=== PATIENT | female | born 1985 | race Caucasian/White ===

== ENCOUNTER 2017-08-21 14:51 | Emergency (ER) | payer BC ==
[2017-08-21 15:26] VITALS: BP 133/77
--- NOTE | 2017-08-21 15:49 | ED ---
Skin Complaint - HPI Summary HPI Summary: 32 year old female presents with a lesion on her face for the past 2 days. She states that swelling seems to keep increasing. She denies any dental pain. No fevers. He states three days ago she noticed that there was some swelling in her axillary region. She has had swelling in the left axillary region has decreased. She states she's been placed ice on the area which has helped decrease the swelling. No sinus congestion. No headache. Does not have a history of MRSA. No medical conditions. - History of Current Complaint Hx Last Menstrual Period: 08/21/17 Pain Intensity: 3 <Matilda Jamison - Last Filed: 08/21/17 16:00> <Sangeetha Ambrosio - Last Filed: 08/21/17 16:59> - History of Current Complaint Chief Complaint: UCSkin Time Seen by Provider: 08/21/17 15:38 Stated Complaint: LIP COMPLAINT - Allergy/Home Medications Allergies/Adverse Reactions: Allergies Allergy/AdvReac Type Severity Reaction Status Date / Time metoclopramide [From Reglan] Allergy Shakes Verified 08/21/17 15:19 PMH/Surg Hx/FS Hx/Imm Hx Endocrine/Hematology History: Denies: Hx Diabetes, Hx Thyroid Disease Cardiovascular History: Denies: Hx Hypertension Respiratory History: Denies: Hx Asthma, Hx Chronic Obstructive Pulmonary Disease (COPD) GI History: Denies: Hx Ulcer Neurological History: Reports: Hx Migraine - this is different from her usual migraine - Surgical History Surgery Procedure, Year, and Place: 2006 TONSILECTOMY Infectious Disease History: No Infectious Disease History: Reports: History Other Infectious Disease - lyme Denies: Hx Clostridium Difficile, Hx Hepatitis, Hx Human Immunodeficiency Virus (HIV), Hx of Known/Suspected MRSA, Hx Shingles, Hx Tuberculosis, Traveled Outside the [place] in Last 30 Days - Family History Known Family History: Positive: None - Social History Alcohol Use: Rare Substance Use Type: Reports: None Smoking Status (MU): Never Smoked Tobacco <Matilda Jamison - Last Filed: 08/21/17 16:00> Review of Systems Negative: Fever Negative: Chest Pain Negative: Shortness Of Breath Positive: Rash, Other - facial edema All Other Systems Reviewed And Are Negative: Yes <Matilda Jamison - Last Filed: 08/21/17 16:00> Physical Exam Triage Information Reviewed: Yes Vital Signs On Initial Exam: Initial Vitals Temp Pulse Resp BP Pulse Ox 98.1 F 85 18 133/77 100 08/21/17 15:20 08/21/17 15:20 08/21/17 15:20 08/21/17 15:20 08/21/17 15:20 Vital Signs Reviewed: Yes Appearance: Positive: Well-Appearing Skin: Positive: Warm, Dry, Other - edema noted to left face above upper lip with some erythema (1cm) no area of fluactance or loculation felt, 1cm are of edema felt inguinal lymph node Eyes: Positive: Normal, EOMI, HAYES, Conjunctiva Clear ENT: Positive: Normal ENT inspection, Pharynx normal, TMs normal Dental: Negative: Percussion Tenderness @, Dental Fracture @ Respiratory/Lung Sounds: Positive: Clear to Auscultation, Breath Sounds Present Cardiovascular: Positive: Normal, RRR Musculoskeletal: Positive: Normal Neurological: Positive: Normal Psychiatric: Positive: Normal <Matilda Jamison - Last Filed: 08/21/17 16:00> Vital Signs On Initial Exam: Initial Vitals Temp Pulse Resp BP Pulse Ox 98.1 F 85 18 133/77 100 08/21/17 15:20 08/21/17 15:20 08/21/17 15:20 08/21/17 15:20 08/21/17 15:20 <Sangeetha Ambrosio - Last Filed: 08/21/17 16:59> Diagnostics - Vital Signs Vital Signs Temp Pulse Resp BP Pulse Ox 08/21/17 15:20 98.1 F 85 18 133/77 100 <Matilda Jamison - Last Filed: 08/21/17 16:00> - Vital Signs Vital Signs Temp Pulse Resp BP Pulse Ox 08/21/17 15:20 98.1 F 85 18 133/77 100 <Sangeetha Ambrosio - Last Filed: 08/21/17 16:59> Course/Dx - Course Course Of Treatment: 32 year old female presents with a lesion on her face for the past 2 days. She states that swelling seems to keep increasing. She denies any dental pain. No fevers. He states three days ago she noticed that there was some swelling in her axillary region. She has had swelling in the left axillary region has decreased. She states she's been placed ice on the area which has helped decrease the swelling. No sinus congestion. No headache. Does not have a history of MRSA. No medical conditions. on exam has edema and 1cm erythema above left upper lip. no abscess felt but looks like could potenitally abscess. no dental tenderness. will treat as early abscess with bactrim. told to place heat and if feels like can drain something to return. patient requesting dose of diflucain. will have follow up with primary for wound check and to follow up as bp as in pre-htn range currently. patient understand and agrees with plan. - Differential Diagnoses - Skin Complaint Differential Diagnoses: Abscess, Cellulitis, Contact Dermatitis <Matilda Jamison - Last Filed: 08/21/17 16:00> <Sangeetha Ambrosio - Last Filed: 08/21/17 16:59> - Diagnoses Provider Diagnoses: Facial swelling Discharge - Sign-Out/Discharge Documenting (check all that apply): Discharge/Admit/Transfer - Billing Disposition and Condition Condition: GOOD Disposition: Home <Matilda Jamison - Last Filed: 08/21/17 16:00> - Billing Disposition and Condition Condition: GOOD Disposition: Home <Sangeetha Ambrosio - Last Filed: 08/21/17 16:59> - Discharge Plan Condition: Good Disposition: HOME Prescriptions: Fluconazole [Diflucan 150 MG (NF)] 150 mg PO ONCE #1 tab Sulfamethox/Trimethoprim DS* [Bactrim DS 800/160 TAB*] 1 tab PO BID #20 tab Patient Education Materials: Abscess (ED) Referrals: Elena Castillo MD [Primary Care Provider] - Additional Instructions: alternate ice and heat Take antibiotic twice a day for 10 days Take ibuprofen or Tylenol for pain every 6 hours follow up with primary within 5 days Return to if develop fever, area feels like can be drained, or any new or worsening symptoms Attestation Statement User Type: Provider - I was available for consult. This patient was seen by the [facility]. The patient was not presented to, seen by, or examined by me. -Adriana <Sangeetha Ambrosio - Last Filed: 08/21/17 16:59>
== END 2017-08-21 16:00 | disposition home or self-care (01) ==
LOC: UCEAST 14:51
DX: R22.9 Localized swelling, mass and lump, unspecified (principal); L98.8 Other specified disorders of the skin and subcutaneous tissue
CPT/HCPCS: 99212; G0463

== ENCOUNTER 2017-11-29 14:30 | Emergency (ER) | payer BC ==
[2017-11-29 16:13] VITALS: BP 124/86
--- NOTE | 2017-11-29 16:37 | UC ---
Throat Pain/Nasal Srinivas HPI - HPI Summary HPI Summary: 6 day hx of sore throat/laryngitis. nothing makes it better/worse. + sick contacts at work, she is ? strep. some cough. did not get flu shot. - History of Current Complaint Chief Complaint: UCGeneralIllness Stated Complaint: THROAT COMPLAINT Time Seen by Provider: 11/29/17 16:17 Hx Obtained From: Patient Hx Last Menstrual Period: 11/04/17 ?: No - bcp Severity: Mild Pain Intensity: 7 Cough: None Associated Signs & Symptoms: Positive: Negative Related History: Seasonal Allergies - Allergies/Home Medications Allergies/Adverse Reactions: Allergies Allergy/AdvReac Type Severity Reaction Status Date / Time metoclopramide [From [employer]] Allergy Shakes Verified 11/29/17 16:13 PMH/Surg Hx/FS Hx/Imm Hx Previously Healthy: Yes - Surgical History Surgical History: Yes Surgery Procedure, Year, and Place: 2006 TONSILECTOMY - Family History Known Family History: Positive: Other - noncontributary - Social History Alcohol Use: Weekly Substance Use Type: None Smoking Status (MU): Never Smoked Tobacco Review of Systems Constitutional: Negative Skin: Negative ENT: Sore Throat, Sinus Congestion Respiratory: Negative Cardiovascular: Negative Musculoskeletal: Negative All Other Systems Reviewed And Are Negative: Yes Physical Exam Triage Information Reviewed: Yes Appearance: Well-Appearing, Well-Nourished Vital Signs: Initial Vital Signs Temp 98.2 F 11/29/17 16:09 Pulse 86 11/29/17 16:09 Resp 20 11/29/17 16:09 BP 124/86 11/29/17 16:09 Pulse Ox 100 11/29/17 16:09 Vital Signs Reviewed: Yes ENT Exam: Normal ENT: Positive: Pharynx normal, TMs normal. Negative: Tonsillar exudate Dental: Negative: Cervical Lymphadenopathy Neck exam: Normal Neck: Positive: Supple Respiratory Exam: Normal Respiratory: Positive: Lungs clear Cardiovascular Exam: Normal Neurological: Positive: Alert Psychological Exam: Normal Skin: Negative: rashes Throat Pain/Nasal Course/Dx - Course Course Of Treatment: 6 day hx of sore throat and loss of voice w/ no fever. rapid strep neg. viral pharyngitis, self limiting. recommended fluids, nsaids and return if worsening. - Differential Dx/Diagnosis Differential Diagnosis/HQI/PQRI: Laryngitis, Tonsillitis, URI Provider Diagnoses: pharyngitis/laryngitis Discharge - Sign-Out/Discharge Documenting (check all that apply): Patient Departure All imaging exams completed and their final reports reviewed: No Studies - Discharge Plan Condition: Good Disposition: HOME Patient Education Materials: Pharyngitis (ED) Referrals: Elena Castillo MD [Primary Care Provider] - Additional Instructions: return to urgent care if symptoms worsen - Billing Disposition and Condition Condition: GOOD Disposition: Home - Attestation Statements Provider Attestation: I was available for consult. This patient was seen by the [facility]. The patient was discussed with me. She was seen by or examined by me. -Adriana
== END 2017-11-29 16:38 | disposition home or self-care (01) ==
LOC: UCEAST 14:30
DX: J02.9 Acute pharyngitis, unspecified (principal); J04.0 Acute laryngitis; Z88.8 Allergy status to other drugs, medicaments and biological substances
CPT/HCPCS: 87651; 99211; G0463

== ENCOUNTER 2018-04-10 12:23 | Emergency (ER) | payer BC ==
[2018-04-10] MEDS ORDERED: Albuterol/Ipratropium NEB.SOL* Albuterol 2.5 MG/Ipratropium 0.5 MG 3 ML INH ONE (13:52)
[2018-04-10 14:33] LABS: Influenza A Molecular NEGATIVE (Negative); Influenza B Molecular NEGATIVE (Negative)
--- NOTE | 2018-04-10 14:45 | UC ---
FLU HPI - HPI Summary HPI Summary: Pt c/o of influenza like symptoms and ST X 10 days. 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 - History of Current Complaint Chief Complaint: UCGeneralIllness Stated Complaint: SORE THROAT EAR PAIN Time Seen by Provider: 04/10/18 13:47 Hx Obtained From: Patient Hx Last Menstrual Period: 03/22/18 ?: No Onset/Duration: Gradual Onset, Lasting Days, Still Present Severity Currently: Moderate Severity Initially: Moderate Pain Intensity: 7 Associated Signs & Symptoms: Positive: Myalgia, Sore Throat Related Hx: Possible Flu/Infectious Exposure - Risk Factors Influenza Risk Factors: Negative - Allergy/Home Medications Allergies/Adverse Reactions: Allergies Allergy/AdvReac Type Severity Reaction Status Date / Time metoclopramide [From Reglan] Allergy Shakes Verified 04/10/18 13:25 Home Medications: Home Medications Levonorgestrel-Ethin Estradiol [Lessina-28 Tablet] 1 tab PO DAILY 04/10/18 [ History Confirmed 04/10/18] PMH/Surg Hx/FS Hx/Imm Hx Previously Healthy: Yes - Surgical History Surgical History: Yes Surgery Procedure, Year, and Place: 2007 TONSILECTOMY - Family History Known Family History: Positive: Cardiac Disease, Other - noncontributary - Social History Occupation: Employed Full-time Lives: With Family Alcohol Use: Weekly Substance Use Type: None Smoking Status (MU): Never Smoked Tobacco Have You Smoked in the Last Year: No Review of Systems All Other Systems Reviewed And Are Negative: Yes Constitutional: Positive: Fever, Chills, Fatigue Skin: Positive: Negative Eyes: Positive: Negative ENT: Positive: Sore Throat, Sinus Congestion Respiratory: Positive: Negative Cardiovascular: Positive: Negative Gastrointestinal: Positive: Negative Genitourinary: Positive: Negative Motor: Positive: Negative Neurovascular: Positive: Negative Musculoskeletal: Positive: Myalgia Neurological: Positive: Negative Psychological: Positive: Negative Is Patient Immunocompromised?: No Physical Exam Triage Information Reviewed: Yes Appearance: Ill-Appearing Vital Signs: Initial Vital Signs Temp 98.9 F 04/10/18 13:21 Pulse 83 04/10/18 13:21 Resp 20 04/10/18 13:21 BP 109/70 04/10/18 13:21 Pulse Ox 100 04/10/18 13:21 Vital Signs Reviewed: Yes Eye Exam: Normal ENT: Positive: Nasal congestion Dental Exam: Normal Neck exam: Normal Respiratory Exam: Normal Cardiovascular Exam: Normal Musculoskeletal Exam: Normal Neurological Exam: Normal Psychological Exam: Normal Skin Exam: Normal Flu Course/Dx - Differential Dx/Diagnosis Differential Diagnosis/HQI/PQRI: Bronchitis, Influenza, Upper Respiratory Infection Provider Diagnosis: Viral syndrome Discharge - Sign-Out/Discharge Documenting (check all that apply): Patient Departure All imaging exams completed and their final reports reviewed: No Studies - Discharge Plan Condition: Stable Disposition: HOME Patient Education Materials: Viral Syndrome (ED) Referrals: Elena Castillo MD [Primary Care Provider] - If Needed - Billing Disposition and Condition Condition: STABLE Disposition: Home
[2018-04-10 14:46] VITALS: BP 121/73
== END 2018-04-10 15:02 | disposition home or self-care (01) ==
LOC: UCEAST 12:23
DX: B34.9 Viral infection, unspecified (principal); M79.10 Myalgia, unspecified site; H92.09 Otalgia, unspecified ear; Z88.8 Allergy status to other drugs, medicaments and biological substances
CPT/HCPCS: 87651; 99211; G0463

== ENCOUNTER 2018-06-17 21:15 | Emergency (ER) | payer BC ==
[2018-06-17 21:39] VITALS: BP 115/75
--- NOTE | 2018-06-17 22:00 | UC ---
Eye Complaint HPI - HPI Summary HPI Summary: 33 y/o female presents to the urgent care c/o left eye redness, mild swelling and irritation since yesterday. Pt reports this morning she woke up she has yellowish crusting. 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 Pt denies fever, eye pain, HAINES, photophobia, fever, SOB chest pain,abdominal pain, N/v/d. - History of Current Complaint Chief Complaint: UCEye Stated Complaint: EYE COMPLAINT Time Seen by Provider: 06/17/18 21:42 Hx Obtained From: Patient Hx Last Menstrual Period: <1 WEEK ?: No Onset/Duration: Gradual Onset, Lasting Days - 2 days, Still Present, Worse Since - this morniing Timing: Constant Severity Initially: Mild Severity Currently: Mild Pain Intensity: 5 Pain Scale Used: 0-10 Numeric Location of Injury: Conjunctiva - left eye Character: Foreign Body Sensation Aggravating Factor(s): Blinking Alleviating Factor(s): Nothing Associated Signs And Symptoms: Positive: Drainage (Purulent) - yellowish. Negative: Photophobia, Vision Impairment Bilateral, Fever, Swelling - Risk Factors Penetrating Injury Risk Factor: Negative Globe Rupture Risk Factors: Negative Acute Glaucoma Risk Factors: Negative Optic Artery Occlusion Risk Factors: Negative - Allergies/Home Medications Allergies/Adverse Reactions: Allergies Allergy/AdvReac Type Severity Reaction Status Date / Time metoclopramide [From Reglan] Allergy Shakes Verified 06/17/18 21:39 PMH/Surg Hx/FS Hx/Imm Hx Previously Healthy: Yes - Pt denies PMHX - Surgical History Surgical History: Yes Surgery Procedure, Year, and Place: 2006 TONSILLECTOMY - Family History Known Family History: Positive: Cardiac Disease, Other - noncontributary - Social History Occupation: Employed Full-time Lives: With Family Alcohol Use: Occasionally Substance Use Type: None Smoking Status (MU): Never Smoked Tobacco Have You Smoked in the Last Year: No Review of Systems All Other Systems Reviewed And Are Negative: Yes Constitutional: Positive: Negative Skin: Positive: Negative Eyes: Positive: Drainage - yellowish, Eye Redness - left eye. Negative: Photophobia ENT: Positive: Negative Respiratory: Positive: Negative Cardiovascular: Positive: Negative Gastrointestinal: Positive: Negative Genitourinary: Positive: Negative Motor: Positive: Negative Neurovascular: Positive: Negative Musculoskeletal: Positive: Negative Neurological: Positive: Negative Psychological: Positive: Negative Is Patient Immunocompromised?: No Physical Exam - Summary Physical Exam Summary: Vital Signs Reviewed: Yes General: Well appearing, well nourished female in no apparent pain distress Eyes: Positive: left Conjunctiva Inflamed - Visual acuity: WNL,Visual bain: full to confrontation.PERRLA, EOMI intact w/out limitation or complaint of pain. eyelashes clear. mild tearing and yellowish drainage observed. No ciliary flush. No chemosis, No photophobia. Normal fundoscopic exam; no proptosis, exophthalmos, nystagmus. ENT: Positive: Normal ENT inspection, Hearing grossly normal, Pharynx normal, Nasal congestion, Nasal drainage - clear, TMs normal - B/L external ear canal clear , TM's WNL. Negative: Tonsillar swelling, Tonsillar exudate Neck: Positive: Supple, Nontender, No Lymphadenopathy Respiratory: Positive: Chest nontender, Lungs clear, Normal breath sounds, No respiratory distress Cardiovascular: Positive: RRR, No Murmur, Pulses Normal, Brisk Capillary Refill Abdomen Description: Positive: Nontender, No Organomegaly, Soft. Negative: CVA Tenderness (R), CVA Tenderness (L) Bowel Sounds: Positive: Present Musculoskeletal: Positive: Strength Intact, ROM Intact, No Edema Neurological Exam: Normal Psychological Exam: Normal Skin Exam: Normal Triage Information Reviewed: Yes Vital Signs: Initial Vital Signs Temp 98.4 F 06/17/18 21:35 Pulse 106 06/17/18 21:35 Resp 16 06/17/18 21:35 BP 115/75 06/17/18 21:35 Pulse Ox 99 06/17/18 21:35 Eye Complaint Course/Dx - Course Course Of Treatment: 33 y/o female presents to the urgent care c/o left eye redness, mild swelling and irritation since yesterday. Pt reports this morning she woke up she has yellowish crusting. 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 Pt denies fever, eye pain, HAINES, photophobia, fever, SOB chest pain,abdominal pain, N/v/d. Hx obtained. Pt w/ Left eye acute bacterial conjunctivitis. Pt Rx Ciprofloxacin ophthalmic drops. Drops dispense at the clinic since pharmacy is closed. Pt advised to encourage hand washing and if symptoms do not improve or worsen to f/u with her PCP or Converter Supervisor Dr Cliff Rivera in 2-3 days. Pt understood and agreed. - Differential Dx/Diagnosis Differential Diagnosis/HQI/PQRI: Conjunctivitis, Periorbital Cellulitis, Orbital Cellulitis, Uveitis Provider Diagnosis: Acute bacterial conjunctivitis of left eye Discharge - Sign-Out/Discharge Documenting (check all that apply): Patient Departure - D/c home All imaging exams completed and their final reports reviewed: No Studies - Discharge Plan Condition: Stable Disposition: HOME Patient Education Materials: Conjunctivitis (ED) Forms: *Work Release Referrals: Elena Castillo MD [Primary Care Provider] - 3 Days Cliff Rivera MD [Medical Doctor] - If Needed Additional Instructions: 1-Please apply ciprofloxacin ophthalmic drops as instructed and finish the full course of treatment to avoid recurrent infection. 2-If you do not improve or if symptoms worsen please f/u with your PCP or geospatial information scientist Dr Rivera for further evaluation and treatment - Billing Disposition and Condition Condition: STABLE Disposition: Home
[2018-06-17] MEDS ORDERED: Ciprofloxacin 0.3% OPTH.SOL* 2.5 ML BTL LEFT EYE ONE (22:17)
== END 2018-06-17 22:33 | disposition home or self-care (01) ==
LOC: UCEAST 21:15
DX: H10.32 Unspecified acute conjunctivitis, left eye (principal); Z88.8 Allergy status to other drugs, medicaments and biological substances
CPT/HCPCS: 99212; A9270-GY; G0463

== ENCOUNTER 2018-07-07 16:23 | Emergency (ER) | payer BC ==
[2018-07-07 16:48] VITALS: BP 123/75
--- NOTE | 2018-07-07 17:01 | UC ---
[facility] HPI - HPI Summary HPI Summary: Jaw pain left side since yesterday afternoon after chewing on something hars, felt sharp pain in the left TMJ. has had difficulty chewing and opening wide, has use ibuprofen with only some relief. - History of Current Complaint Chief Complaint: UCDentalProblem Stated Complaint: DENTAL Time Seen by Provider: 07/07/18 16:29 Hx Obtained From: Patient Hx Last Menstrual Period: 06/08/18 ?: No Onset/Duration: Sudden Onset, Lasting Days - 1 Severity: Moderate Pain Intensity: 6 Related History: TMJ Dysfunction - Allergies/Home Medications Allergies/Adverse Reactions: Allergies Allergy/AdvReac Type Severity Reaction Status Date / Time metoclopramide [From Reglan] Allergy Shakes Verified 07/07/18 16:48 PMH/Surg Hx/FS Hx/Imm Hx Previously Healthy: Yes - Surgical History Surgical History: Yes Surgery Procedure, Year, and Place: 2006 TONSILLECTOMY - Family History Known Family History: Positive: Cardiac Disease, Other - noncontributary - Social History Alcohol Use: Rare Substance Use Type: None Smoking Status (MU): Never Smoked Tobacco Have You Smoked in the Last Year: No Review of Systems All Other Systems Reviewed And Are Negative: Yes ENT: Positive: Ear Ache Musculoskeletal: Positive: Arthralgia, Decreased ROM Physical Exam Triage Information Reviewed: Yes Appearance: Well-Appearing, Well-Nourished, Pain Distress Vital Signs: Initial Vital Signs Temp 98.9 F 07/07/18 16:43 Pulse 80 07/07/18 16:43 Resp 12 07/07/18 16:43 BP 123/75 07/07/18 16:43 Pulse Ox 98 07/07/18 16:43 Vital Signs Reviewed: Yes Eye Exam: Normal ENT: Positive: Other - bilateral cerumen impaction Dental Exam: Normal Respiratory Exam: Normal Cardiovascular Exam: Normal Abdominal Exam: Normal Musculoskeletal: Positive: ROM Limited @ - in opening and closing of the jaw, manidble is slightly deviated to the right, no swelling noted. no clicking of jaw noted Neurological Exam: Normal Psychological Exam: Normal Skin Exam: Normal Dental Complaint Course/Dx - Course Course Of Treatment: hx obtained, exam performed ,meds reviewed, bilateral ears irrigated, educated on conservative care of the TMJ. muscle relaxor's and NSAIDs for pain. RICE - Differential Dx/Diagnosis Provider Diagnosis: TMJ arthralgia Discharge - Sign-Out/Discharge Documenting (check all that apply): Patient Departure All imaging exams completed and their final reports reviewed: No Studies - Discharge Plan Condition: Stable Disposition: HOME Prescriptions: Cyclobenzaprine TAB* [Flexeril 10 MG TAB*] 10 mg PO BEDTIME #10 tab Patient Education Materials: Temporomandibular Disorder (ED) Referrals: Elena Castillo MD [Primary Care Provider] - Additional Instructions: 1. continue with iburprofen for pain 2. Flexeril at night 3. Rest, Heat, and rest the jaw. if not improving over the next week follow up with Dr castillo. - Billing Disposition and Condition Condition: STABLE Disposition: Home - Attestation Statements Provider Attestation: I was available for consult. This patient was seen by the [facility]. The patient was not presented to , seen by or examined by in -Jordan Calles MD
[2018-07-07] MEDS ORDERED: Cyclobenzaprine TAB* 10 MG PO ONE (17:14)
== END 2018-07-07 17:35 | disposition home or self-care (01) ==
LOC: UCEAST 16:23
DX: M26.622 Arthralgia of left temporomandibular joint (principal); H61.23 Impacted cerumen, bilateral; Z88.8 Allergy status to other drugs, medicaments and biological substances
CPT/HCPCS: 99213; A9270-GY; G0463

== ENCOUNTER 2018-07-26 19:47 | Emergency (ER) | payer BC ==
--- NOTE | 2018-07-26 20:05 | UC ---
General HPI - HPI Summary HPI Summary: 33 yo female c/o L ear pain, awakening her approx 03:00am this morning. Concerned that she may have an ear infection. Had cerumen flushed a couple weeks ago, and L ear didn't feel right afterwards. Since pain episode last night, she is concerned about possible infection. Re dental, does grind her teeth, and is in the process of getting this addressed. No hx of pain like this in the past. No recent fever / chills. No gi issues. Did develop pain a couple weeks ago (prompting cerumen flush), s/p biting down hard on caramel. No neck pain, there is some jaw discomfort. Wears earplugs at night, every night. - History of Current Complaint Stated Complaint: EAR PAIN Time Seen by Provider: 07/26/18 20:04 Hx Obtained From: Patient Hx Last Menstrual Period: 06/08/18 - Allergy/Home Medications Allergies/Adverse Reactions: Allergies Allergy/AdvReac Type Severity Reaction Status Date / Time metoclopramide [From Reglan] Allergy Shakes Verified 07/26/18 20:28 Home Medications: Home Medications Fexofenadine/Pseudoephedrine [Debi-D 24 Hour Tablet] 1 each PO DAILY [History Confirmed 07/26/18] PMH/Surg Hx/FS Hx/Imm Hx Previously Healthy: Yes - see hpi - Surgical History Surgical History: Yes Surgery Procedure, Year, and Place: 2006 TONSILLECTOMY - Family History Known Family History: Positive: Cardiac Disease, Other - noncontributary - Social History Alcohol Use: Rare Substance Use Type: None Smoking Status (MU): Never Smoked Tobacco Have You Smoked in the Last Year: No Review of Systems All Other Systems Reviewed And Are Negative: Yes Constitutional: Positive: Negative Skin: Positive: Negative Eyes: Positive: Negative ENT: Positive: Other - see hpi Respiratory: Positive: Negative Cardiovascular: Positive: Negative Gastrointestinal: Positive: Negative Genitourinary: Positive: Negative Motor: Positive: Other - see hpi Neurovascular: Positive: Other Musculoskeletal: Positive: Other: - see hpi Neurological: Positive: Negative Psychological: Positive: Negative Is Patient Immunocompromised?: No Physical Exam Triage Information Reviewed: Yes Appearance: Well-Nourished - sitting up, conversing easily and appropriately, full sentances Vital Signs Reviewed: Yes Eye Exam: Normal - grossly normal, nad ENT Exam: Other - L TM + mild redness, c/w barotrauma. EAC bilat nad. TM's both hummel, rtx'd, dull. No reported or visible mouth sores. Dentition grossly ok. Tender TMJ - bilat, but particularly tender L TMJ. No trismus but hurts with full opening of jaw with pressure. No rash / ext cellulitis Dental Exam: Other - see above Neck: Positive: Supple, Nontender Respiratory Exam: Normal - RR normal, no tachypnea, no dyspnea Cardiovascular Exam: Normal - HR normal, nondiaphoretic Abdominal Exam: Normal - benign Musculoskeletal Exam: Normal - gait steady, moves x 4 ok Neurological Exam: Normal - grossly nonfocal Psychological Exam: Normal - sitting up, conversing easily and appropriately, full sentances Course/Dx - Course Course Of Treatment: Reviewed coa / tx plan. Questions as posed answered to the best of my ability. Reviewed controlle subst talk. istop Reference #: [id number] F/u Dentist and PCP. - Diagnoses Provider Diagnosis: TMJ arthropathy, Serous otitis media, Barotrauma Discharge - Sign-Out/Discharge Documenting (check all that apply): Patient Departure All imaging exams completed and their final reports reviewed: No Studies - Discharge Plan Condition: Stable Disposition: HOME Prescriptions: Diazepam TAB(*) [Valium TAB(*)] 5 mg PO BEDTIME PRN #4 tab MDD 1 PRN Reason: Spasms Naproxen [Naproxen 500 mg tab] 500 mg PO BID PRN #30 tablet.dr PRN Reason: Pain Patient Education Materials: Barotitis Media (ED), Temporomandibular Disorder ( ED), Serous Otitis Media (ED) Referrals: Elena Castillo MD [Primary Care Provider] - Additional Instructions: Please schedule an appointment with your DENTIST. Follow up with your primary care physician, in the next couple weeks if possible. Lots of pillows. Seek medical attention for worse or new problems. If you take the diazepam (valium) at night, do not take trazodone that night. Do not drink any alcohol or drive or operate heavy machinery or make serious decisions while taking valium. Naproxen at least twice daily for 3 days, than twice daily as needed for pain / inflammation therafter. - Billing Disposition and Condition Condition: STABLE Disposition: Home
[2018-07-26 20:25] VITALS: BP 120/81
== END 2018-07-26 20:37 | disposition home or self-care (01) ==
LOC: UCEAST 19:47
DX: M26.69 Other specified disorders of temporomandibular joint (principal); H65.92 Unspecified nonsuppurative otitis media, left ear; T70.0XXA Otitic barotrauma, initial encounter; X58.XXXA Exposure to other specified factors, initial encounter; Z88.8 Allergy status to other drugs, medicaments and biological substances
CPT/HCPCS: 99212; G0463

== ENCOUNTER 2018-08-07 10:55 | Emergency (ER) | payer BC ==
--- NOTE | 2018-08-07 12:12 | UC ---
Pediatric ENT HPI - HPI Summary HPI Summary: Pt c/o sudden onset of ST, X 2 days. Pt has known exposure to strep. Pt had tonsillectomy. Denies fever, chills or difficulty swallowing. - History Of Current Complaint Chief Complaint: UCRespiratory Stated Complaint: SORE THROAT Time Seen by Provider: 08/07/18 12:08 Hx Obtained From: Patient Onset/Duration: Sudden Onset, Lasting Days, Still Present Timing: Constant Severity Initially: Moderate Severity Currently: Moderate Pain Intensity: 6 Character: Sharp, Dull Aggravating Factor(s): Feeding Alleviating Factor(s): Antipyretics Associated Signs And Symptoms: Sore Throat - Risk Factor(s) Epiglottis Risk Factors: Sudden Onset - Allergies/Home Medications Allergies/Adverse Reactions: Allergies Allergy/AdvReac Type Severity Reaction Status Date / Time metoclopramide [From Reglan] Allergy Shakes Verified 08/07/18 11:45 Home Medications: Home Medications Ibuprofen [Advil] 400 mg PO ONCE PRN 08/07/18 [History Confirmed 08/07/18] Past Medical History Previously Healthy: Yes History: Normal ENT History: Yes: Pharyngitis Respiratory History: No: Hx Asthma Chronic Illness History: No: Diabetes - Surgical History Surgical History: Yes: Tonsillectomy - Family History Family History of Asthma: No Family History Of Seizure: No - Social History Maternal Substance Use: No Hx Smoking Exposure: No - Immunization History Immunizations Up to Date: Yes Review Of Systems All Other Systems Reviewed And Are Negative: Yes Constitutional: Positive: Chills Eyes: Positive: Negative ENT: Positive: Throat Pain Cardiovascular: Positive: Negative Respiratory: Positive: Negative Gastrointestinal: Positive: Negative Genitourinary: Positive: Negative Musculoskeletal: Positive: Negative Skin: Positive: Negative Neurological: Positive: Negative Psychological: Positive: Negative Physical Exam Triage Information Reviewed: Yes Vital Signs: Initial Vital Signs Temp 98.3 F 08/07/18 11:41 Pulse 100 08/07/18 11:41 Resp 18 08/07/18 11:41 BP 132/72 08/07/18 11:41 Pulse Ox 99 08/07/18 11:41 Vital Signs Reviewed: Yes Appearance: Ill-Appearing Eyes: Positive: Normal ENT: Positive: Pharyngeal erythema Respiratory: Positive: Normal breath sounds Cardiovascular: Positive: Normal Musculoskeletal: Positive: Normal Neurological: Positive: Normal Psychological: Positive: Normal Pediatric EENT Course/Dx - Course Course Of Treatment: Pt is an adult. Pediatric template noted. - Differential Dx/Diagnosis Differential Diagnosis/HQI/PQRI: Pharyngitis, Tonsillitis Provider Diagnosis: Strep throat Discharge - Sign-Out/Discharge Documenting (check all that apply): Patient Departure All imaging exams completed and their final reports reviewed: No Studies - Discharge Plan Condition: Stable Disposition: HOME Prescriptions: Fluconazole 150 MG TAB* [Diflucan 150 MG TAB*] 150 mg PO UC ONCE #2 tablet Penicillin VK 500 MG TAB(NF) [Penicillin VK 500 mg Tab] 500 mg PO Q8H #30 tab Patient Education Materials: Strep Throat (DC) Referrals: Elena Castillo MD [Primary Care Provider] - If Needed - Billing Disposition and Condition Condition: STABLE Disposition: Home
[2018-08-07 12:19] VITALS: BP 132/72
== END 2018-08-07 12:21 | disposition home or self-care (01) ==
LOC: UCEAST 10:55
DX: J02.9 Acute pharyngitis, unspecified (principal); Z20.828 Contact with and (suspected) exposure to other viral communicable diseases
CPT/HCPCS: 87651; 99212; G0463

== ENCOUNTER 2018-08-25 17:59 | Emergency (ER) | payer BC ==
[2018-08-25 19:25] VITALS: BP 112/77
--- NOTE | 2018-08-25 19:33 | UC ---
Throat Pain/Nasal Srinivas HPI - HPI Summary HPI Summary: sore throat had strep 2 weeks ago and finished a course of antibiotics - History of Current Complaint Chief Complaint: UCGeneralIllness Stated Complaint: SORE THROAT Time Seen by Provider: 08/25/18 19:17 Hx Obtained From: Patient Hx Last Menstrual Period: 2 weeks ago ?: No Onset/Duration: Sudden Onset, Lasting Weeks Pain Intensity: 6 Pain Scale Used: 0-10 Numeric Cough: Nonproductive Associated Signs & Symptoms: Positive: Negative - Allergies/Home Medications Allergies/Adverse Reactions: Allergies Allergy/AdvReac Type Severity Reaction Status Date / Time metoclopramide [From Reglan] Allergy Shakes Verified 08/25/18 19:25 PMH/Surg Hx/FS Hx/Imm Hx Previously Healthy: Yes - Surgical History Surgical History: Yes Surgery Procedure, Year, and Place: 2006 TONSILLECTOMY - Family History Known Family History: Positive: Cardiac Disease, Other - noncontributary - Social History Occupation: Employed Full-time Lives: With Family Alcohol Use: Rare Substance Use Type: None Smoking Status (MU): Never Smoked Tobacco Have You Smoked in the Last Year: No Review of Systems All Other Systems Reviewed And Are Negative: Yes Constitutional: Positive: Negative Skin: Positive: Negative Eyes: Positive: Negative ENT: Positive: Sore Throat Respiratory: Positive: Negative Cardiovascular: Positive: Negative Gastrointestinal: Positive: Negative Genitourinary: Positive: Negative Motor: Positive: Negative Neurovascular: Positive: Negative Musculoskeletal: Positive: Negative Neurological: Positive: Negative Psychological: Positive: Negative Is Patient Immunocompromised?: No Physical Exam Triage Information Reviewed: Yes Appearance: Well-Appearing, No Pain Distress, Well-Nourished Vital Signs: Initial Vital Signs Temp 99 F 08/25/18 19:20 Pulse 83 08/25/18 19:20 Resp 16 08/25/18 19:20 BP 112/77 08/25/18 19:20 Pulse Ox 100 08/25/18 19:20 Vital Signs Reviewed: Yes Eye Exam: Normal Eyes: Positive: Conjunctiva Clear ENT Exam: Normal ENT: Positive: Normal ENT inspection, Hearing grossly normal, Pharynx normal, TMs normal, Uvula midline. Negative: Nasal congestion, Trismus, Muffled voice, Hoarse voice, Dental tenderness, Sinus tenderness Dental Exam: Normal Neck exam: Normal Neck: Positive: Supple, Nontender, No Lymphadenopathy Respiratory Exam: Normal Respiratory: Positive: Chest non-tender, Lungs clear, Normal breath sounds, No respiratory distress, No accessory muscle use Cardiovascular Exam: Normal Cardiovascular: Positive: RRR, No Murmur, Pulses Normal, Brisk Capillary Refill Musculoskeletal Exam: Normal Musculoskeletal: Positive: Strength Intact, ROM Intact, No Edema Neurological Exam: Normal Neurological: Positive: Alert, Muscle Tone Normal Psychological Exam: Normal Skin Exam: Normal Throat Pain/Nasal Course/Dx - Course Course Of Treatment: tylenol, ibuprofen, increase fluids follow with pcp prn - Differential Dx/Diagnosis Provider Diagnosis: Viral syndrome, Sore throat (viral) Discharge - Sign-Out/Discharge Documenting (check all that apply): Patient Departure All imaging exams completed and their final reports reviewed: No Studies - Discharge Plan Condition: Stable Disposition: HOME Patient Education Materials: Pharyngitis (ED), Viral Syndrome (ED) Referrals: Elena Castillo MD [Primary Care Provider] - If Needed - Billing Disposition and Condition Condition: STABLE Disposition: Home
== END 2018-08-25 19:52 | disposition home or self-care (01) ==
LOC: UCEAST 17:59
DX: B34.9 Viral infection, unspecified (principal); J02.8 Acute pharyngitis due to other specified organisms; Z88.8 Allergy status to other drugs, medicaments and biological substances
CPT/HCPCS: 87070; 87651; 99211; G0463

== ENCOUNTER 2018-11-06 19:11 | Emergency (ER) | payer BC ==
[2018-11-06 19:58] VITALS: BP 133/91
[2018-11-06] MEDS ORDERED: Cephalexin CAP* 500 MG PO ONE (20:18)
--- NOTE | 2018-11-06 20:18 | UC ---
Complaint Female HPI - HPI Summary HPI Summary: 33 yo female with dysuria/urgency and frequncy x 1-2 days no vag d/c no f/c has suprapubic pain no back pain - History Of Current Complaint Chief Complaint: UCGU Stated Complaint: UTI Time Seen by Provider: 11/06/18 19:46 Hx Obtained From: Patient Hx Last Menstrual Period: 1 week ago Onset/Duration: Sudden Onset, Lasting Days Timing: Intermittent, Lasting Seconds Severity Initially: Moderate Pain Intensity: 0 Pain Scale Used: 0-10 Numeric Character: Burning Aggravating Factor(s): Urination Associated Signs And Symptoms: Negative: Fever, Back Pain, Vaginal Bleeding/ Discharge, Vaginal Discharge, Nausea, Vomiting(# Of Episodes =), Genital Swelling, Genital Blisters, Retained Foregin Body (Specify) - Allergies/Home Medications Allergies/Adverse Reactions: Allergies Allergy/AdvReac Type Severity Reaction Status Date / Time metoclopramide [From Reglan] Allergy Shakes Verified 10/24/18 11:17 PMH/Surg Hx/FS Hx/Imm Hx Previously Healthy: Yes - Surgical History Surgical History: Yes Surgery Procedure, Year, and Place: 2007 TONSILLECTOMY - Family History Known Family History: Positive: Cardiac Disease, Hypertension, Other - noncontributary - Social History Alcohol Use: Rare Substance Use Type: None Smoking Status (MU): Never Smoked Tobacco Have You Smoked in the Last Year: No Review of Systems All Other Systems Reviewed And Are Negative: Yes Constitutional: Positive: Negative Skin: Positive: Negative Eyes: Positive: Negative ENT: Positive: Negative Respiratory: Positive: Negative Cardiovascular: Positive: Negative Gastrointestinal: Positive: Abdominal Pain - suprapubic Genitourinary: Positive: Dysuria, Frequency, Urgency Motor: Positive: Negative Neurovascular: Positive: Negative Musculoskeletal: Positive: Negative Neurological: Positive: Negative Psychological: Positive: Negative Physical Exam Triage Information Reviewed: Yes Appearance: Well-Appearing, No Pain Distress, Well-Nourished Vital Signs: Initial Vital Signs Temp 98.3 F 11/06/18 19:56 Pulse 100 11/06/18 19:56 Resp 18 11/06/18 19:56 BP 133/91 11/06/18 19:56 Pulse Ox 100 11/06/18 19:56 Vital Signs Reviewed: Yes Eyes: Positive: Conjunctiva Clear ENT: Positive: Hearing grossly normal. Negative: Nasal congestion, Nasal drainage, Trismus, Muffled voice, Hoarse voice Neck: Positive: Supple Respiratory: Positive: Lungs clear, Normal breath sounds, No respiratory distress Cardiovascular: Positive: RRR, No Murmur Abdomen Description: Positive: No Organomegaly, Soft. Negative: Nontender - tender supropubically only, CVA Tenderness (R), CVA Tenderness (L), Distended, Guarding, Hernia @ Bowel Sounds: Positive: Present Musculoskeletal: Positive: ROM Intact, No Edema Neurological: Positive: Alert Psychological Exam: Normal Skin Exam: Normal Complaint Female Dx - Course Course Of Treatment: UA ++ leuks - Differential Dx/Diagnosis Provider Diagnosis: UTI (urinary tract infection) Discharge ED - Sign-Out/Discharge Documenting (check all that apply): Patient Departure All imaging exams completed and their final reports reviewed: No Studies - Discharge Plan Condition: Stable Disposition: HOME Prescriptions: Cephalexin CAP* [Keflex CAP*] 500 mg PO BID #10 cap Fluconazole 150 MG (NF) [Diflucan 150 mg (NF)] 150 mg PO ONCE #2 tab Phenazopyridine TAB* [Pyridium TAB*] 100 mg PO TID #6 tab Patient Education Materials: Urinary Tract Infection in Women (ED) Referrals: Elena Castillo MD [Primary Care Provider] - If Needed Additional Instructions: I suspect you have a UTI A urine culture is pending recheck for new or worsening symptoms or if not better in 2-3 days take diflucan if you develop a yeast infection - Billing Disposition and Condition Condition: STABLE Disposition: Home
[2018-11-06] MEDS ORDERED: Phenazopyridine TAB* 100 MG PO ONE (20:19)
== END 2018-11-06 20:30 | disposition home or self-care (01) ==
LOC: UCEAST 19:11
DX: N39.0 Urinary tract infection, site not specified (principal)
CPT/HCPCS: 81003; 87077; 87086; 87186; 99212; A9270-GY; G0463

== ENCOUNTER 2019-01-02 14:55 | Emergency (ER) | payer BC ==
[2019-01-02 15:04] VITALS: BP 127/74
--- NOTE | 2019-01-02 15:15 | UC ---
Throat Pain/Nasal Srinivas HPI - HPI Summary HPI Summary: 33-year-old woman comes in with a chief complaint of sore throat and upper chest congestion for 3-4 days. Does have some body aches. No chest congestion wheezing. There is some rhinorrhea but it's minimal. She has been exposed to people with strep throat. - History of Current Complaint Chief Complaint: UCGeneralIllness Stated Complaint: sore throat Time Seen by Provider: 01/02/19 15:05 Hx Last Menstrual Period: 2 weeks ago Pain Intensity: 6 - Allergies/Home Medications Allergies/Adverse Reactions: Allergies Allergy/AdvReac Type Severity Reaction Status Date / Time metoclopramide [From Reglan] Allergy Shakes Verified 01/02/19 15:05 PMH/Surg Hx/FS Hx/Imm Hx Previously Healthy: Yes - Surgical History Surgical History: Yes Surgery Procedure, Year, and Place: 2006 TONSILLECTOMY - Family History Known Family History: Positive: Cardiac Disease, Hypertension, Other - noncontributary - Social History Alcohol Use: Rare Substance Use Type: None Smoking Status (MU): Never Smoked Tobacco Have You Smoked in the Last Year: No Review of Systems All Other Systems Reviewed And Are Negative: Yes Constitutional: Positive: Other - see hpi Skin: Positive: Negative Eyes: Positive: Negative ENT: Positive: Sore Throat, Nasal Discharge Respiratory: Positive: Other - see hpi Cardiovascular: Positive: Negative Gastrointestinal: Positive: Negative Motor: Positive: Negative Neurovascular: Positive: Negative Musculoskeletal: Positive: Myalgia Neurological: Positive: Negative Psychological: Positive: Negative Is Patient Immunocompromised?: No Physical Exam Triage Information Reviewed: Yes Appearance: No Pain Distress, Well-Nourished, Ill-Appearing - mild Vital Signs: Initial Vital Signs Temp 98.4 F 01/02/19 14:57 Pulse 96 01/02/19 14:57 Resp 17 01/02/19 14:57 BP 127/74 01/02/19 14:57 Pulse Ox 99 01/02/19 14:57 Vital Signs Reviewed: Yes Eye Exam: Normal Eyes: Positive: Conjunctiva Clear ENT: Positive: Pharyngeal erythema, TMs normal Neck: Positive: Supple Respiratory: Positive: Lungs clear, Normal breath sounds, No respiratory distress Cardiovascular: Positive: RRR Musculoskeletal: Positive: Strength Intact, ROM Intact Neurological: Positive: Alert, Muscle Tone Normal Psychological: Positive: Age Appropriate Behavior Skin Exam: Normal Throat Pain/Nasal Course/Dx - Course Course Of Treatment: DISCUSSED VIRAL VERSES BACTERIAL INFECTIONS AND THE ROLE OF ANTIBIOTICS. THE PATIENT PREFERS TO HAVE AN ANTIBIOTIC RX TO BE USED IF NOT IMPROVING AT 10 DAYS OF SX. - Differential Dx/Diagnosis Provider Diagnosis: Pharyngitis, Bronchitis Discharge ED - Sign-Out/Discharge Documenting (check all that apply): Patient Departure All imaging exams completed and their final reports reviewed: No Studies - Discharge Plan Condition: Stable Disposition: HOME Prescriptions: Azithromyxin LATRICE (NF) [Z-Latrice (Zithromax) 250 mg tabs #6] 2 tab PO .TODAY, THEN 1 DAILY #6 tab Fluconazole 150 MG TAB* [Diflucan 150 MG TAB*] 150 mg PO ONCE #2 tablet Patient Education Materials: Pharyngitis (ED), Acute Bronchitis (ED) Referrals: Elena Castillo MD [Primary Care Provider] - Additional Instructions: FOLLOW UP WITH YOUR DOCTOR IF NOT COMPLETELY IMPROVED. GET REEVALUATED SOONER IF NOT IMPROVED OR WORSE OR ANY QUESTIONS OR CONCERNS. - Billing Disposition and Condition Condition: STABLE Disposition: Home
== END 2019-01-02 15:34 | disposition home or self-care (01) ==
LOC: UCEAST 14:55
DX: J02.9 Acute pharyngitis, unspecified (principal); J40 Bronchitis, not specified as acute or chronic; M79.10 Myalgia, unspecified site; Z88.8 Allergy status to other drugs, medicaments and biological substances
CPT/HCPCS: 87651; 99212; G0463

== ENCOUNTER 2019-02-26 16:14 | Emergency (ER) | payer BC ==
[2019-02-26] MEDS ORDERED: Ondansetron ODT TAB* 4 MG PO ONE (17:06)
--- NOTE | 2019-02-26 17:24 | UC ---
Abdominal Pain Female HPI - HPI Summary HPI Summary: PATIENT PRESENTS WITH OVER 2 WEEKS OF DIFFUSE ABDOMINAL PAIN. WORSE IN THE SUPRAPUBIC AND PERIUMBILICAL REGIONS. HAS BEEN TAKING PRILOSEC DAILY WITH NO IMPROVEMENT. SHE HAS ASSOCIATED NAUSEA BUT NO VOMITING. SHE HAS BEEN HAVING WATERY STOOLS. OVER THE PAST FEW DAYS HER SYMPTOMS HAVE WORSENED AND SHE IS NOW UNABLE TO EAT. NO DYSURIA, FREQUENCY OR URGENCY. NO FEVER. - History of Current Complaint Chief Complaint: UCAbdominalPain Stated Complaint: STOMACH PAIN Time Seen by Provider: 02/26/19 16:28 Hx Obtained From: Patient Hx Last Menstrual Period: 02/12/19 Onset/Duration: Gradual Onset, Lasting Weeks, Still Present Severity Initially: Moderate Severity Currently: Moderate Pain Intensity: 8 Pain Scale Used: 0-10 Numeric Location: Diffuse Radiates: No Character: Colicy, Sharp Aggravating Factor(s): Food Alleviating Factor(s): Nothing Associated Signs and Symptoms: Positive: Decreased Appetite, Nausea, Diarrhea. Negative: Fever, Dizzy, Back Pain, Constipation, Blood in Stool, Urinary Symptoms, Vomiting Allergies/Adverse Reactions: Allergies Allergy/AdvReac Type Severity Reaction Status Date / Time metoclopramide [From Reglan] Allergy Shakes Verified 02/26/19 16:28 Home Medications: Home Medications Omeprazole CAP(NF) [PriLOSEC CAP(NF)] 10 mg PO DAILY 02/26/19 [History Confirmed 02/26/19] traZODone TAB* [Desyrel TAB*] 50 mg PO BEDTIME 02/26/19 [History Confirmed 02/26] PMH/Surg Hx/FS Hx/Imm Hx Neurological History: Migraine - Surgical History Surgical History: Yes Surgery Procedure, Year, and Place: 2007 TONSILLECTOMY - Family History Known Family History: Positive: Cardiac Disease, Hypertension, Other - noncontributary - Social History Alcohol Use: Occasionally Substance Use Type: None Smoking Status (MU): Never Smoked Tobacco Have You Smoked in the Last Year: No Review of Systems All Other Systems Reviewed And Are Negative: Yes Constitutional: Positive: Negative Respiratory: Positive: Negative Cardiovascular: Positive: Negative Gastrointestinal: Positive: Abdominal Pain, Diarrhea, Nausea Genitourinary: Positive: Negative Physical Exam Triage Information Reviewed: Yes Appearance: Well-Nourished, Pain Distress - LOOKS MODERATELY UNCOMFORTABLE Vital Signs: Initial Vital Signs Temp 97.9 F 02/26/19 16:20 Pulse 81 02/26/19 16:20 Resp 18 02/26/19 16:20 BP 140/72 02/26/19 16:20 Pulse Ox 100 02/26/19 16:20 Vital Signs Reviewed: Yes Eyes: Positive: Conjunctiva Clear ENT: Positive: Hearing grossly normal Neck: Positive: Supple Respiratory Exam: Normal Cardiovascular Exam: Normal Abdomen Description: Positive: Soft, Other: - TTP DIFFUSELY BUT WORST SUPRAPUBIC AND PERIUMBILICAL.. Negative: CVA Tenderness (R), CVA Tenderness (L) , Distended, Guarding Bowel Sounds: Positive: Present Musculoskeletal: Positive: No Edema Neurological: Positive: Alert Psychological: Positive: Age Appropriate Behavior Skin: Negative: Rashes Diagnostics - Radiology GB US Radiology Interpretation Completed By: Radiologist Summary of Radiographic Findings: NO ACUTE SONOGRAPHIC PATHOLOGY OF THE VISUALIZED PORTION OF THE ABDOMEN. Abd Pain Female Course/Dx - Course Course Of Treatment: RIGHT UPPER QUADRANT ULTRASOUND WITH NO ACUTE SONOGRAPHIC PATHOLOGY OF THE VISUALIZED PORTION OF THE ABDOMEN. ZOFRAN WAS MILDLY EFFECTIVE AT ALLEVIATING SOME OF THE PATIENT'S NAUSEA. DISCUSSED TRANSFER TO THE EMERGENCY ROOM FOR FURTHER EVALUATION OF HER DISCOMFORT. PATIENT DECLINES IN FAVOR OF CONTINUED CAREFUL OBSERVATION AT HOME. RECOMMEND GI EVAL. SHE WILL GO TO THE ER WITHOUT FAIL IF HER SYMPTOMS WORSEN OR DO NOT IMPROVE OVER THE NEXT 24 HOURS. - Differential Dx/Diagnosis Provider Diagnosis: Periumbilical abdominal pain Discharge ED - Sign-Out/Discharge Documenting (check all that apply): Patient Departure All imaging exams completed and their final reports reviewed: Yes - Discharge Plan Condition: Stable Disposition: HOME Prescriptions: Ondansetron ODT TAB* [Zofran Odt TAB*] 4 mg PO Q6H PRN #20 tab.odt PRN Reason: Nausea/Vomiting Patient Education Materials: Abdominal Pain (ED) Forms: *Work Release Referrals: [facility] [Provider Group] - 2 Days Elena Castillo MD [Primary Care Provider] - If Needed Additional Instructions: RIGHT UPPER QUADRANT ULTRASOUND TODAY UNREMARKABLE. URINE DIP UNREMARKABLE. RECOMMEND GI FOLLOW-UP THIS WEEK. ZOFRAN NEEDED FOR NAUSEA. GO TO THE ER WITHOUT FAIL IF YOU DEVELOP WORSENING PAIN, NAUSEA/VOMITING, BLOODY DIARRHEA, FEVER OR ANY OTHER CONCERNING SYMPTOMS. - Billing Disposition and Condition Condition: STABLE Disposition: Home
[2019-02-26 18:30] VITALS: BP 135/76
== END 2019-02-26 18:30 | disposition home or self-care (01) ==
LOC: UCEAST 16:14
DX: R10.33 Periumbilical pain (principal); R11.0 Nausea; R19.7 Diarrhea, unspecified; Z88.8 Allergy status to other drugs, medicaments and biological substances
CPT/HCPCS: 76705; 81003; 99212; A9270-GY; G0463

== ENCOUNTER 2019-02-27 12:23 | Emergency (ER) | payer BC ==
--- OUTSIDE RECORDS SUMMARY | 2019-02-27 13:04 | XMS REPORT | Continuity of Care Document ---
:1985 External Reference #:[id number] Author Name Liam Grey N.P. (transmitted by agent of provider Aliyah Liu) Address [address], [place], [place] [address] Care Team Providers Name Role Phone Lindsay Epps MD - Internal Medicine Care Team Information [employer] Cliff Bishop MD - Care Team Information Blockmason [phone] Otolaryngology Problems Active Problems Provider Date Lyme disease Lindsay Epps M.D., FACP Onset: 07/27/2011 Myalgia & Myositis Unspecified Lindsay Epps M.D., FACP Onset: 07/27/2011 Telogen effluvium Lindsay Epps M.D., FACP Onset: 07/27/2011 Multiple joint pain Uriel Dyer M.D. Onset: 07/27/2011 Essential tremor Uriel Dyer M.D. Onset: 07/27/2011 Other myositis, unspecified site Harlan Diaz M.D. Onset: 10/09/2018 Chronic intractable migraine without aura Harlan Diaz M.D. Onset: 03/19 Social History Type Date Description Comments Sex Unknown Tobacco Use Start: Unknown Never Smoked Cigarettes Smoking Status Reviewed: 01/09/19 Never Smoked Cigarettes ETOH Use Occasionally consumes alcohol Tobacco Use Start: Unknown Patient has never smoked Recreational Drug Use Denies Drug Use Exercise Type/Frequency Exercises regularly Allergies, Adverse Reactions, Alerts Active Allergies Reaction Severity Comments Date Reglan 09/21/2010 Medications Active Medications SIG Qnty Indications Ordering Provider Date Topiramate 1 tab in am 2 90tabs G43.719 Liam Grey, 01/09/2019 25mg Tablets tabs in pm N.P. Cyclobenzaprine HCL 1 tablet at 30tabs M54.2 Harlan Diaz 10/09/2018 5mg night for pain M.D. Tablets Larissia As directed Unknown 0.1-20mg-mcg Tablets Probiotic 1 by mouth every Unknown Capsules day Multi Vitamin Daily 1 by mouth every Unknown day Tablets Zyrtec Allergy 1 by mouth every Unknown 10mg day Capsules Almotriptan Malate 1 by mouth twice Unknown 12.5mg a day as needed Tablets migraine max 2 days/wk Ibuprofen 200 400-600mg every Unknown 200mg 6 hours as Tablets needed for pain. Benadryl Allergy 2 caps 1 hour Unknown 25mg prior to Capsules procedure Magnesium Aspartate 300 mg 1 tab Unknown 65mg every day Tablets Medications Administered in Office Medication SIG Qnty Indications Ordering Provider Date Depomedrol 40MG Lisa Celis M.D. 10/12/2016 Injection Immunizations Description No Information Available Vital Signs Date Vital Result Comment 01/09/2019 4:11pm Height 66 inches 5'6" Weight 130.00 lb Heart Rate 86 /min BP Systolic 102 mmHg BP Diastolic 74 mmHg BMI (Body Mass Index) 21.0 kg/m2 10/09/2018 3:05pm Height 66 inches 5'6" Weight 130.00 lb Heart Rate 106 /min BP Systolic 114 mmHg BP Diastolic 88 mmHg BMI (Body Mass Index) 21.0 kg/m2 Results Description No Information Available Procedures Description No Information Available Medical Devices Description No Information Available Encounters Type Date Location Provider Dx Diagnosis Office Visit 10/09/2018 [facility] Harlan Diaz, G43.719 Chronic migraine 3:00p [facility] 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 without status m 01/09/2019 R53.82 Chronic fatigue, unspecified Liam Grey, N.P. 01/09/2019 M54.2 Cervicalgia Liam Grey, N.P. 10/09/2018 G43.719 Chronic migraine without aura, intractable, Harlan Diaz M.D. without status m 10/09/2018 M60.80 Other myositis, unspecified site Harlan Diaz M.D. 10/09/2018 R53.82 Chronic fatigue, unspecified Harlan Diaz M.D. 10/09/2018 M54.2 Cervicalgia Harlan Diaz M.D. Plan of Treatment Future Appointment(s):04/14/2019 3:00 pm - Liam [facility]01/09/2019 - Liam Grey NNicoleG43.719 Chronic migraine without aura, intractable, without status mNew Medication:Topiramate 25 mg - 1 tab in am 2 tabs in pmR53.82 Chronic fatigue, nppopbsoujpX25.2 CervicalgiaNew Xrays:MRI Cervical Spine Wo, Ordered: 01/09/19Follow up:3 months Functional Status Description No Information Available Mental Status Description No Information Available Referrals Description No Information Available
--- NOTE | 2019-02-27 13:50 | ED ---
Abdominal Pain/Female - HPI Summary HPI Summary: 34-year-old female with a significant past medical history of migraines on oral control, LMP 3 weeks ago presents to the emergency department today complaining of abdominal pain. Patient states she has 8 out of 10 right upper quadrant and epigastric pain which is made worse with movement. Patient states she has been experiencing this pain for 3 weeks but it has become acutely worse this morning. She also endorses 3 weeks of nausea and diarrhea. Patient states she was seen at urgent care yesterday and had a right upper quadrant ultrasound done which was unremarkable. Patient was given omeprazole which she states not helping and she was told to go to the emergency Department immediately if her pain increased. Patient denies fever, pus in her stool, blood in her stool, or colored stool. Patient states her last menstrual period was approximately 3 weeks ago and regular. Patient denies burning with urination. Patient denies surgical history and family history noncontributory. Patient denies recent antibiotic use. - History of Current Complaint Chief Complaint: EDAbdPain Stated Complaint: SEVERE ABDOMINAL PAIN PER PT Time Seen by Provider: 02/27/19 13:47 Hx Obtained From: Patient Hx Last Menstrual Period: 02/12/19 Onset/Duration: Gradual Onset Timing: Constant Severity Initially: Severe Severity Currently: Severe Pain Intensity: 7 Pain Scale Used: 0-10 Numeric Location: Diffuse, Discrete At: RUQ, Epigastric Radiates: No Character: Cramping Aggravating Factor(s): Movement Alleviating Factor(s): Nothing Associated Signs and Symptoms: Positive: Decreased Appetite, Nausea, Vomiting, Diarrhea. Negative: Fever, Chest Pain, Back Pain, Constipation, Blood in Stool , Urinary Symptoms, Vaginal Bleeding, Vaginal Discharge Allergies/Adverse Reactions: Allergies Allergy/AdvReac Type Severity Reaction Status Date / Time metoclopramide [From Reglan] Allergy Shakes Verified 02/27/19 12:27 Home Medications: Home Medications Topiramate TAB(*) [Topamax 25 MG tab] 25 mg PO BID 02/27/19 [History Confirmed 02/27/19] PMH/Surg Hx/FS Hx/Imm Hx Endocrine/Hematology History: Denies: Hx Diabetes, Hx Thyroid Disease Cardiovascular History: Denies: Hx Hypertension, Hx Pacemaker/ICD Respiratory History: Denies: Hx Asthma, Hx Chronic Obstructive Pulmonary Disease (COPD) GI History: Denies: Hx Ulcer History: Denies: Hx Renal Disease Musculoskeletal History: Denies: Hx Rheumatoid Arthritis, Hx Osteoporosis Sensory History: Denies: Hx Hearing Aid Neurological History: Reports: Hx Migraine - this is different from her usual migraine Psychiatric History: Denies: Hx Panic Disorder - Surgical History Surgery Procedure, Year, and Place: 2007 TONSILLECTOMY Infectious Disease History: No Infectious Disease History: Reports: History Other Infectious Disease - lyme Denies: Hx Clostridium Difficile, Hx Hepatitis, Hx Human Immunodeficiency Virus (HIV), Hx of Known/Suspected MRSA, Hx Shingles, Hx Tuberculosis, Traveled Outside the [place] in Last 30 Days - Family History Known Family History: Positive: Cardiac Disease, Hypertension, Other - noncontributary - Social History Alcohol Use: Occasionally Substance Use Type: Reports: None Smoking Status (MU): Never Smoked Tobacco Have You Smoked in the Last Year: No Review of Systems Constitutional: Negative Eyes: Negative ENT: Negative Cardiovascular: Negative Respiratory: Negative Positive: Abdominal Pain, Vomiting, Diarrhea, Nausea Genitourinary: Negative Musculoskeletal: Negative Skin: Negative Neurological: Negative Psychological: Normal All Other Systems Reviewed And Are Negative: Yes Physical Exam - Summary Physical Exam Summary: Inspection of the abdomen reveals no ecchymosis or masses. Auscultation reveals normal active bowel sounds. Palpation reveals diffuse tenderness of the abdomen with no guarding or rigidity. Patient is tender at McBurney's point. Negative psoas, Rovsing, obturator, Kelly's sign. Triage Information Reviewed: Yes Vital Signs On Initial Exam: Initial Vitals Temp Pulse Resp BP Pulse Ox 98.3 F 86 18 138/91 100 02/27/19 12:24 02/27/19 12:24 02/27/19 12:24 02/27/19 12:24 02/27/19 12:24 Vital Signs Reviewed: Yes Appearance: Positive: Well-Appearing, No Pain Distress, Well-Nourished Skin: Positive: Warm, Skin Color Reflects Adequate Perfusion Eyes: Positive: EOMI, HAYES ENT: Positive: Hearing grossly normal Respiratory/Lung Sounds: Positive: Clear to Auscultation, Breath Sounds Present Cardiovascular: Positive: RRR, S1, S2 Abdomen Description: Positive: No Organomegaly, Soft. Negative: CVA Tenderness (R), CVA Tenderness (L), Distended, Guarding Bowel Sounds: Positive: Present Musculoskeletal: Positive: Strength/ROM Intact Neurological: Positive: Sensory/Motor Intact, Alert, Oriented to Person Place, Time, Normal Gait, Facial Symmetry, Speech Normal Psychiatric: Positive: Normal, Affect/Mood Appropriate AVPU Assessment: Alert Procedures - Sedation Patient Received Moderate/Deep Sedation with Procedure: No Diagnostics - Vital Signs Vital Signs Temp Pulse Resp BP Pulse Ox 02/27/19 12:24 98.3 F 86 18 138/91 100 - Laboratory Result Diagrams: 02/27/19 14:06 02/27/19 14:06 Lab Statement: Any lab studies that have been ordered have been reviewed, and results considered in the medical decision making process. Abdominal Pain Fem Course/Dx - Course Course Of Treatment: Patient was evaluated in the emergency department today for abdominal pain and nausea and vomiting. Patient was seen and examined vitals are stable and she was afebrile. Laboratory results returned showing no abnormalities including no evidence of leukocytosis, no electrolyte abnormalities, no anemia, Negative lipase ruling out pancreatitis, negative , urinalysis within normal limits. It was discussed with the patient the risks of radiation from CT imaging at her age based on her lab reports however she insisted on abdominal CT for her continued pain. CT scan of the abdomen and pelvis with contrast shows right ovarian cyst. It is likely pt also is suffering from a mild level of PUD which cannot be appreciated on CT. Pt is to take ibuprofen for pain and follow up with PCP. - Diagnoses Differential Diagnosis: Positive: Appendicitis, Constipation, Diverticulitis, Ectopic , Gall Bladder Disease, Pancreatitis, Peptic Ulcer Disease, , Renal Colic, Urinary Tract Infection Provider Diagnoses: Right ovarian cyst Discharge ED - Sign-Out/Discharge Documenting (check all that apply): Patient Departure - Discharge Plan Condition: Stable Disposition: HOME Patient Education Materials: Ovarian Cyst (ED) Referrals: Elena Castillo MD [Primary Care Provider] - 5 Days Additional Instructions: You were seen in the emergency room today for abdominal pain. Imaging was done and found to have a right ovarian cyst. This is benign and will go away on its own. Until then please take ibuprofen 800 mg every 8 hours as needed for pain. Please follow-up with your primary care physician in 7 days for further evaluation and management. Please return to the emergency department immediately if you develop any new or worsening symptoms. - Billing Disposition and Condition Condition: STABLE Disposition: Home - Attestation Statements Provider Attestation: I was available for consultation for this patient. I did not evaluate the patient or participate in any medical decision making or disposition decisions unless I am specifically named in the chart as having consulted on the patient. If I have consulted on the patient, please see my own ED note on the patient encounter. Ezio Moreno MD
[2019-02-27 14:24] LABS: ABS Basophils 0.1 10^3/ul (0-0.2); ABS Lymphocytes 1.9 10^3/ul (1.0-4.8); ABS Monocytes 0.2 10^3/ul (0-0.8); ABS Neutrophils 2.3 10^3/ul (1.5-7.7); Eosinophil % 0.6 %; Hematocrit 41 % (35-47); Lymphocyte % 42.1 %; Mean Corpuscular HGB Conc 34 g/dL (31-36); Mean Corpuscular Hemoglobin 33 pg (27-31); Mean Corpuscular Volume 94 fL (80-97); Mean Platelet Volume 7.9 fL (7.4-10.4); Platelet Count 304 10^3/uL (150-450); Red Blood Count 4.32 10^6 /uL (3.70-4.87); Red Cell Distribution Width 12 % (10-15); White Blood Count 4.6 10^3/uL (3.5-10.8)
[2019-02-27] MEDS ORDERED: Ondansetron INJ* 2 MG/ML VIAL IV ONE (14:25)
[2019-02-27 14:36] LABS: Urine Appearance Clear; Urine Bilirubin Negative (Negative); Urine Blood Negative (Negative); Urine Color Straw; Urine Glucose Negative (Negative); Urine Ketones Negative (Negative); Urine Nitrite Negative (Negative); Urine Protein Negative (Negative); Urine Specific Gravity 1.008 (1.010-1.030); Urine Urobilinogen Negative (Negative)
[2019-02-27 14:48] LABS: ALT 16 U/L (7-52); AST 15 U/L (13-39); Albumin 4.7 g/dL (3.2-5.2); Albumin/Globulin Ratio 1.8 (1-3); Alkaline Phosphatase 30 U/L (34-104); Anion Gap 6 mmol/L (2-11); BUN/Creatinine Ratio 16.5 (8-20); Blood Urea Nitrogen 13 mg/dL (6-24); C Reactive Protein < 1.00 mg/L (<8.01); CO2 Carbon Dioxide 26 mmol/L (22-32); Calcium 9.5 mg/dL (8.6-10.3); Chloride 106 mmol/L (101-111); EGFR African American 100.2 (>60); EGFR Non-African American 82.8 (>60); Globulin 2.6 g/dL (2-4); Glucose 83 mg/dL (70-100); Magnesium 2.1 mg/dL (1.9-2.7); Potassium 3.9 mmol/L (3.5-5.0); Sodium 138 mmol/L (135-145); Total Protein 7.3 g/dL (6.4-8.9)
[2019-02-27 14:51] LABS: HCG Pregnancy < 0.60 mIU/mL
[2019-02-27] MEDS ORDERED: Lidocaine 2% VISCOUS* 15 ML UDC PO ONE (14:51)
[2019-02-27] MEDS ORDERED: Al Hydrox/Mg Hydrox/Simet LIQ* 30 ML UDC PO ONE (14:52)
[2019-02-27] MEDS ORDERED: Lactated Ringers 1000 ML Bag* 1,000 ML IV ONE (15:00)
[2019-02-27] MEDS ORDERED: Iohexol 300* (CONTRAST) 10 ML SDV IV ONE (15:46)
[2019-02-27 16:13] VITALS: BP 117/78
== END 2019-02-27 18:16 | disposition home or self-care (01) ==
LOC: ED 12:23
DX: N83.201 Unspecified ovarian cyst, right side (principal); Z79.899 Other long term (current) drug therapy; Z88.8 Allergy status to other drugs, medicaments and biological substances
CPT/HCPCS: 36415; 74177; 80053; 81003; 83605; 83690; 83735; 84702; 85025; 86140; 96361; 96374; 99282; A9270-GY; J2405; Q9967

== ENCOUNTER 2023-08-09 08:37 | Observation (INO) ==
[2023-08-09] MEDS ORDERED: oxyCODONE SR 10 mg TAB ONE (08:39)
[2023-08-09] MEDS ORDERED: Clindamycin 900 MG/50 **NS BAG 900 MG/50 ML BAG ONE (08:40)
[2023-08-09] MEDS ORDERED: Scopolamine 1 mg/72hr PATCH ONE (08:40)
[2023-08-09] MEDS ORDERED: Ondansetron 4 mg VIAL 2 MG/ML 2 ml VIAL ONE (08:40)
[2023-08-09 09:27] LABS: ABS Eosinophils 0.1 10^3/uL (0.0-0.5); ABS Lymphocytes 2.7 10^3/uL (1.0-4.8); ABS Monocytes 0.2 10^3/uL (0.0-0.9); ABS Neutrophils 2.2 10^3/uL (1.5-7.6); ABS Nucleated RBC 0.01 10^3/ul; Eosinophil % 1.5 %; Hematocrit 41.8 % (35-45); Hemoglobin 14.9 g/dL (11.5-14.3); Lymphocyte % 52.3 %; Mean Corpuscular Hemoglobin 32.4 pg (27-33); Mean Corpuscular Hgb Conc 35.8 g/dL (31-36); Mean Corpuscular Volume 90.6 fL (80-97); Mean Platelet Volume 8.4 fL (7.5-11.2); Nucleated Red Blood Cells % 0.1 %/100WBC (0.0-0.8); Platelet Count 317 10^3/uL (150-450); Red Blood Count 4.61 10^6/uL (3.63-4.92); Red Cell Distribution Width 12.7 % (12-17); White Blood Count 5.2 10^3/uL (3.8-11.8)
[2023-08-09] MEDS ORDERED: Lidocaine 1% VIAL 10 MG/ML 30 ML VIAL ONE (09:37)
[2023-08-09] MEDS ORDERED: Heparin 2 UNITS/ML IVPREMIX 3,000 UNIT/1,500 ML BAG IV ONE (09:37)
[2023-08-09] MEDS ORDERED: Iohexol 350 (CONTRAST) 100 ML PAK IV ONE (09:37)
[2023-08-09] MEDS ORDERED: nitroGLYCERIN DRIP 25,000 MCG/250 ML BTL ONE (09:38)
[2023-08-09 09:40] LABS: Activated Partial Thrombo Time 21.8 seconds (26.0-38.0); INR 0.87 (0.83-1.13)
[2023-08-09 09:51] LABS: HCG Pregnancy < 0.60 mIU/mL
[2023-08-09] MEDS ORDERED: Midazolam 5 mg/5 ml VIAL 1 mg/ml 5 ml VIAL (5 mg) ONE (09:59)
[2023-08-09] MEDS ORDERED: fentaNYL 100 mcg/2 ml 50 MCG/ML VIAL ONE ×2 (09:59→10:38)
[2023-08-09 11:02] LABS: Anion Gap 12 mmol/L (2-16); Blood Urea Nitrogen 15 mg/dL (6-24); CO2 Carbon Dioxide 20 mmol/L (22-32); Calcium 9.4 mg/dL (8.6-10.3); Chloride 107 mmol/L (101-111); Creatinine, Serum 0.85 mg/dL (0.51-0.95); Glucose 92 mg/dL (70-100); Potassium 3.9 mmol/L (3.5-5.0); Sodium 139 mmol/L (135-145); eGFR CKD-EPI 89.3 (>60)
[2023-08-09] MEDS ORDERED: HYDROmorphone 0.5 MG/0.5 ML SYRINGE ONE (11:13)
[2023-08-09] MEDS ORDERED: Prochlorperazine 5 mg/ml 2 ml VIAL (10 mg) ONE (11:18)
[2023-08-09] MEDS ORDERED: HYDROmorphone 1 MG/1 ML SYRINGE ONE (11:53)
[2023-08-09] MEDS: HYDROmorphone 1 MG/1 ML SYRINGE IV PRN (11:53)
[2023-08-09] MEDS ORDERED: Naloxone 0.4 mg VIAL 0.4 mg/ml 1 ml VIAL IV PUSH PRN (12:10)
[2023-08-09] MEDS ORDERED: Flumazenil 0.5 mg/5 ml 0.1 MG/ML 5 ml VIAL IV PRN (12:10)
[2023-08-09] MEDS: NS 0.9% 1000 ml BAG 1,000 ML IV SCH (12:12)
[2023-08-09] MEDS: Ondansetron 4 mg VIAL 2 MG/ML 2 ml VIAL IV SCH (18:10)
[2023-08-10 06:05] LABS: Hemoglobin 13.6 g/dL (11.5-14.3); Mean Corpuscular Hemoglobin 31.4 pg (27-33); Mean Corpuscular Hgb Conc 34.9 g/dL (31-36); Mean Platelet Volume 8.4 fL (7.5-11.2); Platelet Count 322 10^3/uL (150-450); Red Blood Count 4.33 10^6/uL (3.63-4.92); Red Cell Distribution Width 12.5 % (12-17); White Blood Count 9.9 10^3/uL (3.8-11.8)
[2023-08-10 10:13] VITALS: BP 127/80
[2023-08-10] MEDS: HYDROcodone/ACETAMIN 5/325 mg TAB PO PRN (10:50)
[2023-08-10] MEDS: Ketorolac 10 mg TAB (NF) PO SCH (10:50)
[2023-08-11] MEDS ORDERED: Scopolamine 1 mg/72hr PATCH TRANSDERM SCH (19:00)
== END 2023-08-10 13:10 | disposition home or self-care (01) ==
LOC: SSU 08:37 → CHICATH 08:37 → SUATTDRO 12:54
PROVIDERS: ADMIT Radiology Diagnostic Radiology; ATTEND Student in an Organized Health Care Education/Training Program
PROC: ANG.UFE (2023-08-09 10:15)